=== PATIENT | male | born 1945 | race Caucasian/White ===

== ENCOUNTER 2017-01-08 09:44 | Day surgery (SDC) | payer OTHER, BC ==
[~2017-01-08] VITALS: Ht 188 cm; Wt 144.7 kg
[~2017-01-08 09:44] MED LIST: AMBIEN10 MG PO; CARDIZEM CD,CA240 MG PO; COLCRYS0.6 MG PO; COUMADIN4 MG PO; IRON325 M1 PO; LANTUS 3 M100 UNITS1 SC; LASIX40 MG PO; LO-DOSE ASPIRIN81 M1 PO; PAXIL20 MG PO; SINGULAIR10 MG PO; SPIRIVA RESPIMAT4 G1 IH; VITAMIN D2000 UNIT PO; ZOCOR10 MG PO; ZYLOPRIM300 MG PO
[2017-01-08 10:30] LABS: HEMATOCRIT 37.9 % (38.0-50.0); MCH 30.7 PG (29.0-34.0); MCHC 32.2 G/DL (30.0-36.0); MCV 95.5 FL (86-99); MEAN PLAT.VOLUME 9.3 uM^3 (9.0-12.4); PLATELET COUNT 184 K/uL (156-360); RBC DIS.WIDTH-CV 15.3 % (11.8-14.6); RBC DIS.WIDTH-SD 54.1 % (39-53); RED BLOOD COUNT 3.97 M/uL (4.00-5.50); WHITE BLOOD COUNT 9.8 K/uL (4.1-10.2)
[2017-01-08 10:49] LABS: INTER. NORMALIZED RATIO 1.5; PROTHROMBIN TIME 16.6 SEC (10.2-12.9)
[2017-01-08 10:51] VITALS: BP 117/56
[2017-01-08 10:52] LABS: PTT 32.2 SEC (25-37)
[2017-01-08 10:54] LABS: ANION GAP 10 MEQ/L (2-14); CHLORIDE 99 MEQ/L (99-109); POTASSIUM 4.3 MEQ/L (3.7-5.4); SAMPLE HEMOLYSIS CHECK 0; SAMPLE ICTERIC CHECK 0; SAMPLE LIPEMIA CHECK 0; SODIUM 136 MEQ/L (136-147)
[2017-01-08 11:00] LABS: GFR ESTIMATE (CALCULATED) 28 mL/min/; GLUCOSE 103 mg/dL (70-99); UREA NITROGEN (BUN) 63 mg/dL (9-23)
[2017-01-08 12:09] LABS: METH RESISTANT S AUREUS PCR NEGATIVE (NEGATIVE)
[2017-01-08 12:10] LABS: PROBE CHECK PASS; SPECIMEN PROCESSING CONTROL PASS
[2017-01-08 13:47] LABS: POINT-OF-CARE METER ID UU13113675
[2017-01-08 14:23] VITALS: BP 163/83
[2017-01-08 15:10] VITALS: BP 130/68
== END 2017-01-08 15:20 ==
LOC: SDC 09:44
PROVIDERS: Surgery
DX: I12.0 Hypertensive chronic kidney disease with stage 5 chronic kidney disease or end stage renal disease (principal); N18.6 End stage renal disease; Z99.2 Dependence on renal dialysis; E78.00 Pure hypercholesterolemia, unspecified; J44.9 Chronic obstructive pulmonary disease, unspecified; I48.91 Unspecified atrial fibrillation; Z79.82 Long term (current) use of aspirin; E11.22 Type 2 diabetes mellitus with diabetic chronic kidney disease; Z79.4 Long term (current) use of insulin; Z86.711 Personal history of pulmonary embolism; Z87.891 Personal history of nicotine dependence; Z86.718 Personal history of other venous thrombosis and embolism; Z79.01 Long term (current) use of anticoagulants
CPT/HCPCS: 80048; 82948; 85027; 85610; 85730; 87641; 93005; J0690; J1644; J2250; J2720; J3010

== ENCOUNTER 2017-07-14 07:30 | Day surgery (SDC) | payer OTHER, BC ==
[~2017-07-14] VITALS: Ht 188 cm; Wt 138.3 kg
[2017-07-14] MEDS ORDERED: LANTUS 10100 UNITS/ SC (08:12)
[2017-07-14 08:15] VITALS: BP 132/83
[2017-07-14 08:42] LABS: INTER. NORMALIZED RATIO ND
[2017-07-14 09:29] LABS: INTER. NORMALIZED RATIO 1.5
[2017-07-14 09:32] LABS: PTT 33.2 SEC (25-37)
[2017-07-14 11:30] VITALS: BP 127/58
== END 2017-07-14 12:00 | disposition home or self-care (01) ==
LOC: SDC 07:30
PROVIDERS: Internal Medicine
DX: H33.051 Total retinal detachment, right eye (principal); H33.41 Traction detachment of retina, right eye; I13.0 Hypertensive heart and chronic kidney disease with heart failure and stage 1 through stage 4 chronic kidney disease, or unspecified chronic kidney disease; N18.6 End stage renal disease; I50.9 Heart failure, unspecified; E11.22 Type 2 diabetes mellitus with diabetic chronic kidney disease; Z99.2 Dependence on renal dialysis; Z79.82 Long term (current) use of aspirin; Z79.4 Long term (current) use of insulin; Z79.01 Long term (current) use of anticoagulants; Z96.653 Presence of artificial knee joint, bilateral; Z87.891 Personal history of nicotine dependence; Z88.8 Allergy status to other drugs, medicaments and biological substances
CPT/HCPCS: 82948; 84132; 85610; 85730; 86376 90; 87641; J0690; J3300